=== PATIENT | male | born 1985 | race Caucasian/White ===

== ENCOUNTER 2018-12-05 15:28 | Emergency (ER) | payer SELFPAY ==
[2018-12-05 15:28] VITALS: BP 127/63
[2018-12-05] MEDS: ONDANSETRON PF 4 MG/2 ML VIAL. IV ONE (15:48)
[2018-12-05] MEDS ORDERED: MVI, ADULT NO.4 WITH VIT K 10 ML, FOLIC ACID SYRINGE for ER 1 MG, THIAMINE INJ 100 MG i... IV ONE ×4 (16:00)
--- NOTE | 2018-12-05 16:07 | PHYS DOC ---
Adult General Chief Complaint Chief Complaint: ALCOHOL INTOXICATION HPI HPI 32-year-old male was brought in by the local police department with concern for low blood sugar. The patient is under arrest. He appears intoxicated. He denies any pain. He does not want to be evaluated. He insists there is no reason to do any medical workup. He denies fever or chills. He denies any injuries. Review of Systems Review of Systems Constitutional: Denies fever or chills [] Eyes: Denies change in visual acuity, redness, or eye pain [] HENT: Denies nasal congestion or sore throat [] Respiratory: Denies cough or shortness of breath [] Cardiovascular: No additional information not addressed in HPI [] GI: Denies abdominal pain, nausea, vomiting, bloody stools or diarrhea [] : Denies dysuria or hematuria [] Musculoskeletal: Denies back pain or joint pain [] Integument: Denies rash or skin lesions [] Neurologic: Denies headache, focal weakness or sensory changes [] Endocrine: Denies polyuria or polydipsia [] All other systems were reviewed and found to be within normal limits, except as documented in this note. Current Medications Current Medications Current Medications Medications (Trade) Dose Ordered Sig/Helena Start Time Stop Time Status Last Admin Dose Admin Multivitamins/ Minerals 10 ml/ Folic Acid 1 mg/ Thiamine HCl 100 mg/Sodium Chloride 1,011.1 ml @ 1,000 mls/ hr 1X ONCE 12/05/18 16:00 12/05/18 17:00 Ondansetron HCl (Zofran) 4 mg 1X ONCE 12/05/18 16:00 12/05/18 16:03 DC Allergies Allergies Allergies Coded Allergies Type Severity Reaction Last Updated Verified No Known Drug Allergies 12/05/18 No Physical Exam Physical Exam Constitutional: Well developed, well nourished, no acute distress, intoxicated. [] HENT: Normocephalic, atraumatic, bilateral external ears normal, oropharynx moist, no oral exudates, nose normal. [] Eyes: PERRLA, EOMI, conjunctiva normal, no discharge. [] Neck: Normal range of motion, no tenderness, supple, no stridor. [] Cardiovascular:Heart rate regular rhythm, no murmur [] Lungs & Thorax: Bilateral breath sounds clear to auscultation [] Abdomen: Bowel sounds normal, soft, no tenderness, no masses, no pulsatile masses. [] Skin: Warm, dry, no erythema, no rash. [] Back: No tenderness, no CVA tenderness. [] Extremities: No tenderness, no cyanosis, no clubbing, ROM intact, no edema. [] Neurologic: Alert and oriented X 3, normal motor function, normal sensory function, no focal deficits noted. [] Psychologic: Affect agitated, mood anxious. [] Current Patient Data Lab Results Laboratory Tests Test 12/05/18 15:55 Glucose (Fingerstick) 108 mg/dL (70-99) H EKG EKG [] Radiology/Procedures Radiology/Procedures [] Course & Med Decision Making Course & Med Decision Making Pertinent Labs and Imaging studies reviewed. (See chart for details) He is aware of person, place, and time. His blood sugar was over 100. I asked the patient 3 different times if he wanted any further medical workup. The patient declined each time. He understands that this means he will not have any further testing and will leave the hospital. He states this is okay with him. I will discharge him. [] Dragon Disclaimer Dragon Disclaimer This electronic medical record was generated, in whole or in part, using a voice recognition dictation system. Departure Departure: Impression: Primary Impression: Intoxication Disposition: 05 TRANSFER OTHER Condition: STABLE Referrals: NESS RODRIGUEZ (PCP) Patient Instructions: Alcohol Intoxication, [id number] REX MARTINEZ DO Dec 05, 2018 16:07
== END 2018-12-05 16:07 ==
LOC: ER 15:28
DX: F10.129 Alcohol abuse with intoxication, unspecified (principal); E16.2 Hypoglycemia, unspecified; Y90.9 Presence of alcohol in blood, level not specified
CPT/HCPCS: 82947; 99283

== ENCOUNTER 2018-12-13 11:41 | Emergency (ER) | payer SELFPAY ==
[~2018-12-13] VITALS: Ht 172.7 cm; Wt 79.4 kg
[2018-12-13] MEDS ORDERED: IV NORMAL SALINE 1,000ML 1,000 ML IV ONE (12:00)
[2018-12-13 12:29] LABS: BASO % 1 % (0-3); EOS % 1 % (0-3); HEMATOCRIT 45.1 % (39.0-53.0); HEMOGLOBIN 15.4 g/dL (13.0-17.5); LYMPH # 1.7 x10^3/uL (1.0-4.8); LYMPH % 26 % (24-48); MEAN CORPUSCULAR HEMOGLOBIN 28 pg (25-35); MEAN CORPUSCULAR HGB CONC 34 g/dL (31-37); MEAN CORPUSCULAR VOLUME 83 fL (79-100); MONO # 0.5 x10^3/uL (0.0-1.1); MONO % 7 % (0-9); NEUT # 4.4 x10^3uL (1.8-7.7); NEUT % 66 % (31-73); PLATELET COUNT 201 x10^3/uL (140-400); RED BLOOD COUNT 5.44 x10^6/uL (4.30-5.70); RED CELL DISTRIBUTION WIDTH 15.3 % (11.5-14.5); WHITE BLOOD COUNT 6.7 x10^3/uL (4.0-11.0)
[2018-12-13 12:37] LABS: AMPHETAMINE/METHAMPHETAMINE POS (NEG); BARBITURATES NEG (NEG); BENZODIAZEPINES NEG (NEG); CANNABINOIDS POS (NEG); COCAINE NEG (NEG); METHADONE NEG (NEG); OPIATES NEG (NEG); PHENCYCLIDINE NEG (NEG)
[2018-12-13 12:50] LABS: ALBUMIN 4.1 g/dL (3.4-5.0); ALBUMIN/GLOBULIN RATIO 1.1 (1.0-1.7); CALCIUM 9.2 mg/dL (8.5-10.1); CREATININE 0.8 mg/dL (0.7-1.3); GFR 110.7; TOTAL BILIRUBIN 1.1 mg/dL (0.2-1.0); TOTAL PROTEIN 7.9 g/dL (6.4-8.2)
[2018-12-13 12:59] VITALS: BP 160/90
--- NOTE | 2018-12-13 13:17 | PHYS DOC ---
Past History Past Medical History: Alcoholism Past Surgical History: Other Additional Smoking Information: 1 PPD Alcohol Use: Heavy Drug Use: Opiates Adult General Chief Complaint Chief Complaint: DRUG ABUSE HPI HPI 33-year-old male with a history of drug and alcohol abuse but he has been off of the drugs for some time. He has been using alcohol more recently. He was found intoxicated by his and she kicked him out of the house several days ago so went and has been staying in a local hotel. While in the hotel someone offered him methamphetamines which he used. He is currently stating he is very anxious and wants to get help for his substance abuse. Denies any suicidal or homicidal ideation[] Review of Systems Review of Systems Constitutional: Denies fever or chills [] Eyes: Denies change in visual acuity, redness, or eye pain [] HENT: Denies nasal congestion or sore throat [] Respiratory: Denies cough or shortness of breath [] Cardiovascular: No additional information not addressed in HPI [] GI: Denies abdominal pain, nausea, vomiting, bloody stools or diarrhea [] : Denies dysuria or hematuria [] Musculoskeletal: Denies back pain or joint pain [] Integument: Denies rash or skin lesions [] Neurologic: Denies headache, focal weakness or sensory changes [] Endocrine: Denies polyuria or polydipsia [] Psychiatric: Reports anxiety All other systems were reviewed and found to be within normal limits, except as documented in this note. Current Medications Current Medications Current Medications Medications (Trade) Dose Ordered Sig/Helena Start Time Stop Time Status Last Admin Dose Admin Lorazepam (Ativan) 1 mg 1X ONCE 12/13/18 12:20 12/13/18 12:21 DC 12/13/18 12:17 1 MG Sodium Chloride 1,000 ml @ 1,000 mls/hr 1X ONCE 12/13/18 12:00 12/13/18 12:59 DC 12/13/18 12:17 1,000 MLS/HR Allergies Allergies Allergies Coded Allergies Type Severity Reaction Last Updated Verified No Known Drug Allergies 12/05/18 No Physical Exam Physical Exam Constitutional: Well developed, well nourished, no acute distress, non-toxic appearance. [] HENT: Normocephalic, atraumatic, bilateral external ears normal, oropharynx moist, no oral exudates, nose normal. [] Eyes: PERRLA, EOMI, conjunctiva normal, no discharge. [] Neck: Normal range of motion, no tenderness, supple, no stridor. [] Cardiovascular:Heart rate regular rhythm, no murmur [] Lungs & Thorax: Bilateral breath sounds clear to auscultation [] Abdomen: Bowel sounds normal, soft, no tenderness, no masses, no pulsatile masses. [] Skin: Warm, dry, no erythema, no rash. [] Back: No tenderness, no CVA tenderness. [] Extremities: No tenderness, no cyanosis, no clubbing, ROM intact, no edema. [] Neurologic: Tremulous[] Psychologic: Extremely anxious. [] Current Patient Data Vital Signs Vital Signs Date Time Temp Pulse Resp B/P (MAP) Pulse Ox O2 Delivery O2 Flow Rate FiO2 12/13/18 11:47 98.3 108 23 98 Room Air Lab Results Laboratory Tests Test 12/13/18 12:10 12/13/18 12:14 Urine Opiates Screen Neg (NEG) Urine Methadone Screen Neg (NEG) Urine Barbiturates Neg (NEG) Urine Phencyclidine Screen Neg (NEG) Urine Amphetamine/Methamphetamine Pos (NEG) Urine Benzodiazepines Screen Neg (NEG) Urine Cocaine Screen Neg (NEG) Urine Cannabinoids Screen Pos (NEG) Urine Ethyl Alcohol Pos (NEG) White Blood Count 6.7 x10^3/uL (4.0-11.0) Red Blood Count 5.44 x10^6/uL (4.30-5.70) Hemoglobin 15.4 g/dL (13.0-17.5) Hematocrit 45.1 % (39.0-53.0) Mean Corpuscular Volume 83 fL (79-100) Mean Corpuscular Hemoglobin 28 pg (25-35) Mean Corpuscular Hemoglobin Concent 34 g/dL (31-37) Red Cell Distribution Width 15.3 % (11.5-14.5) H Platelet Count 201 x10^3/uL (140-400) Neutrophils (%) (Auto) 66 % (31-73) Lymphocytes (%) (Auto) 26 % (24-48) Monocytes (%) (Auto) 7 % (0-9) Eosinophils (%) (Auto) 1 % (0-3) Basophils (%) (Auto) 1 % (0-3) Neutrophils # (Auto) 4.4 x10^3uL (1.8-7.7) Lymphocytes # (Auto) 1.7 x10^3/uL (1.0-4.8) Monocytes # (Auto) 0.5 x10^3/uL (0.0-1.1) Eosinophils # (Auto) 0.0 x10^3/uL (0.0-0.7) Basophils # (Auto) 0.0 x10^3/uL (0.0-0.2) Sodium Level 137 mmol/L (136-145) Potassium Level 3.0 mmol/L (3.5-5.1) L Chloride Level 97 mmol/L (98-107) L Carbon Dioxide Level 22 mmol/L (21-32) Anion Gap 18 (6-14) H Blood Urea Nitrogen 14 mg/dL (8-26) Creatinine 0.8 mg/dL (0.7-1.3) Estimated GFR (Cockcroft-Gault) 110.7 BUN/Creatinine Ratio 18 (6-20) Glucose Level 88 mg/dL (70-99) Calcium Level 9.2 mg/dL (8.5-10.1) Total Bilirubin 1.1 mg/dL (0.2-1.0) H Aspartate Amino Transferase (AST) 248 U/L (15-37) H Alanine Aminotransferase (ALT) 141 U/L (16-63) H Alkaline Phosphatase 74 U/L (46-116) Total Protein 7.9 g/dL (6.4-8.2) Albumin 4.1 g/dL (3.4-5.0) Albumin/Globulin Ratio 1.1 (1.0-1.7) Ethyl Alcohol Level 23 mg/dL (0-10) H EKG EKG [] Radiology/Procedures Radiology/Procedures [] Course & Med Decision Making Course & Med Decision Making Pertinent Labs and Imaging studies reviewed. (See chart for details) [ED course: Evaluation reveals a 33-year-old male who is suffering the ill effects of methamphetamine abuse. He was given some IV fluids and Ativan during his stay in the department which did help calm him down. We will refer him to the guidance Center for assistance with his substance abuse. Patient is safe for discharge home at this time] Dragon Disclaimer Dragon Disclaimer This electronic medical record was generated, in whole or in part, using a voice recognition dictation system. Departure Departure: Impression: Primary Impression: Methamphetamine abuse Additional Impression: Alcoholism /alcohol abuse Disposition: 01 HOME, SELF-CARE Condition: STABLE Referrals: NESS RODRIGUEZ (PCP) Patient Instructions: Chronic Alcoholism, Methamphetamine Abuse, Complications Additional Instructions: Follow with the guidance Center they will help you with your substance abuse issues. Return to the emergency department with any new or concerning symptoms Problem Qualifiers VAL BERRIOS DO Dec 13, 2018 13:17
== END 2018-12-13 13:25 | disposition home or self-care (01) ==
LOC: ER 11:41
DX: F15.10 Other stimulant abuse, uncomplicated (principal); F10.20 Alcohol dependence, uncomplicated; F17.200 Nicotine dependence, unspecified, uncomplicated; F41.9 Anxiety disorder, unspecified; Y90.1 Blood alcohol level of 20-39 mg/100 ml
CPT/HCPCS: 36415; 80053; 80307; 85025; 96374; 99284; G0480; J2060; J7030

== ENCOUNTER 2019-03-04 08:01 | Inpatient (IN) | payer SELFPAY ==
[~2019-03-04] VITALS: Ht 170.2 cm; Wt 81.6 kg
[2019-03-04] VITALS (10 sets, daily range): BP systolic 107–159; BP diastolic 63–94
[2019-03-04] MEDS ORDERED: MVI, ADULT NO.4 WITH VIT K 10 ML, FOLIC ACID SYRINGE for ER 1 MG, THIAMINE INJ 100 MG i... IV SCH ×4 (08:30)
[2019-03-04 08:43] LABS: BASO % 0 % (0-3); EOS % 0 % (0-3); HEMATOCRIT 49.6 % (39.0-53.0); HEMOGLOBIN 17.2 g/dL (13.0-17.5); LYMPH % 20 % (24-48); MEAN CORPUSCULAR HEMOGLOBIN 29 pg (25-35); MEAN CORPUSCULAR HGB CONC 35 g/dL (31-37); MEAN CORPUSCULAR VOLUME 82 fL (79-100); MONO # 1.5 x10^3/uL (0.0-1.1); MONO % 10 % (0-9); NEUT # 10.6 x10^3uL (1.8-7.7); NEUT % 70 % (31-73); PLATELET COUNT 331 x10^3/uL (140-400); RED BLOOD COUNT 6.04 x10^6/uL (4.30-5.70); RED CELL DISTRIBUTION WIDTH 14.6 % (11.5-14.5); WHITE BLOOD COUNT 15.2 x10^3/uL (4.0-11.0)
[2019-03-04] MEDS ORDERED: IV NORMAL SALINE 1,000ML 1,000 ML IV ONE (08:45)
[2019-03-04] MEDS ORDERED: ONDANSETRON PF 4 MG/2 ML VIAL. IV ONE (08:45)
[2019-03-04 08:46] LABS: SALIC < 0.2 mg/dL (2.8-20.0)
[2019-03-04 08:47] LABS: ACETAMIN < 2.0 mcg/mL (10-30); BARBITURATES NEG (NEG); BENZODIAZEPINES NEG (NEG); CANNABINOIDS POS (NEG); COCAINE NEG (NEG); ETHANOL < 10 mg/dL (0-10); METHADONE NEG (NEG); OPIATES NEG (NEG); PHENCYCLIDINE NEG (NEG)
[2019-03-04 08:48] LABS: AMPHETAMINE/METHAMPHETAMINE NEG (NEG)
[2019-03-04 08:49] LABS: ALBUMIN 5.2 g/dL (3.4-5.0); CREATININE 2.5 mg/dL (0.7-1.3); DIRECT BILIRUBIN 0.3 mg/dL (0.0-0.2); GFR 29.7; MAGNESIUM 2.1 mg/dL (1.8-2.4); TOTAL BILIRUBIN 1.2 mg/dL (0.2-1.0); TOTAL PROTEIN 9.4 g/dL (6.4-8.2)
[2019-03-04 08:50] LABS: POTASSIUM 2.3 mmol/L (3.5-5.1)
[2019-03-04 08:57] LABS: BACTERIA,URINE FEW /HPF (0-FEW); BILIRUBIN,URINE NEG (NEG); CLARITY,URINE HAZY; COLOR,URINE AMBER; GLUCOSE,URINE NEG (NEG); HYALINE CASTS, URINE OCC /HPF; NITRITE,URINE NEG (NEG); RBC,URINE RARE /HPF (0-2); SQUAMOUS EPITHELIAL CELL,UR OCC /LPF; UROBILINOGEN,URINE 1 mg/dL (0.2 mg/dL); WBC,URINE 0 /HPF (0-4)
[2019-03-04] MEDS ORDERED: POTASSIUM CHLORIDE 20 MEQ/15 ML ORAL LIQUID. PO ONE (09:00)
[2019-03-04] MEDS ORDERED: POTASSIUM CHLORIDE 20MEQ 100 ML IV ONE (09:00)
--- NOTE | 2019-03-04 09:03 | PHYS DOC ---
Past History Past Medical History: Asthma Past Surgical History: No Surgical History Smoking: Cigarettes Alcohol Use: Heavy Drug Use: Marijuana Adult General Chief Complaint Chief Complaint: ACCIDENTAL INGESTION HPI HPI Patient is a 33-year-old male presents with nausea and vomiting. This started yesterday. He is been on a drinking binge for the past 6 days. He does have a history of alcoholism. He ingested rubbing alcohol due to lack of ethanol yesterday. Denies any blood in the emesis. Nothing seems to make the symptoms better. Patient smoked marijuana this morning without any improvement. He was able to get some sleep after smoking the marijuana. Denies any other ingestants. Denies any suicidal ideation.[] Review of Systems Review of Systems Constitutional: Denies fever or chills [] Eyes: Denies change in visual acuity, redness, or eye pain [] HENT: Denies nasal congestion or sore throat [] Respiratory: Denies cough or shortness of breath [] Cardiovascular: He notes some left chest pain after throwing up. No worsening with exertion, no respirophasic component, no radiation[] GI: See history of present illness[] : Denies dysuria or hematuria [] Musculoskeletal: Denies back pain or joint pain [] Integument: Denies rash or skin lesions [] Neurologic: Denies headache, focal weakness or sensory changes [] Endocrine: Denies polyuria or polydipsia [] All other systems were reviewed and found to be within normal limits, except as documented in this note. Allergies Allergies Allergies Coded Allergies Type Severity Reaction Last Updated Verified No Known Drug Allergies 12/05/18 No Physical Exam Physical Exam Constitutional: Well developed, well nourished, moderate discomfort, non-toxic appearance. [] HENT: Normocephalic, atraumatic, bilateral external ears normal, oropharynx moist, no oral exudates, nose normal. [] Eyes: PERRLA, EOMI, conjunctiva normal, no discharge. [] Neck: Normal range of motion, no tenderness, supple, no stridor. [] Cardiovascular:Heart rate is tachycardic with a regular rhythm, no murmur [] Lungs & Thorax: Bilateral breath sounds clear to auscultation [] Abdomen: Bowel sounds normal, soft, diffuse tenderness, no masses, no pulsatile masses. [] Skin: Warm, dry, no erythema, no rash. [] Back: No tenderness, no CVA tenderness. [] Extremities: No tenderness, no cyanosis, no clubbing, ROM intact, no edema. [] Neurologic: Alert and oriented X 3, normal motor function, normal sensory function, no focal deficits noted. [] Psychologic: Affect normal, mood normal. [] Current Patient Data Vital Signs Vital Signs Date Time Temp Pulse Resp B/P (MAP) Pulse Ox O2 Delivery O2 Flow Rate FiO2 03/04/19 08:15 98.4 135 20 99 Room Air Lab Results Laboratory Tests Test 03/04/19 08:13 White Blood Count 15.2 x10^3/uL (4.0-11.0) H Red Blood Count 6.04 x10^6/uL (4.30-5.70) H Hemoglobin 17.2 g/dL (13.0-17.5) Hematocrit 49.6 % (39.0-53.0) Mean Corpuscular Volume 82 fL (79-100) Mean Corpuscular Hemoglobin 29 pg (25-35) Mean Corpuscular Hemoglobin Concent 35 g/dL (31-37) Red Cell Distribution Width 14.6 % (11.5-14.5) H Platelet Count 331 x10^3/uL (140-400) Neutrophils (%) (Auto) 70 % (31-73) Lymphocytes (%) (Auto) 20 % (24-48) L Monocytes (%) (Auto) 10 % (0-9) H Eosinophils (%) (Auto) 0 % (0-3) Basophils (%) (Auto) 0 % (0-3) Neutrophils # (Auto) 10.6 x10^3uL (1.8-7.7) H Lymphocytes # (Auto) 3.0 x10^3/uL (1.0-4.8) Monocytes # (Auto) 1.5 x10^3/uL (0.0-1.1) H Eosinophils # (Auto) 0.0 x10^3/uL (0.0-0.7) Basophils # (Auto) 0.0 x10^3/uL (0.0-0.2) EKG EKG EKG shows a sinus tachycardia at 118 bpm, rightward axis at 98, normal QTC, no ST elevation. No old EKG available for comparison. Interpreted by me at 0820.[] Radiology/Procedures Radiology/Procedures Chest x-ray shows no infiltrate, no effusion, no widened mediastinum, no mediastinal free air.[] Course & Med Decision Making Course & Med Decision Making Pertinent Labs and Imaging studies reviewed. (See chart for details) ED course: Patient arrived, was placed in bed, and tolerated exam well. He was given IV fluids along with anti-emetics and benzodiazepines due to concern for alcohol withdrawal. His a laboratory tests returned noted that he's in acute renal failure along with hypokalemia giving initial doses of potassium. Patient's troponin is noted to be in the detectable range but not positive., With these constellation of factors consultation was made with the hospitalist who graciously accepted. He was admitted to the ICU in improved condition. Medical decision making: Believed the patient has depleted his body stores of potassium despite the renal failure, due to the alcohol use. There is no evidence of other significant toxidrome at this time. Will hydrate him and hop efully his renal function will improve to his baseline and that was noted earlier this year. There is no evidence of an esophageal rupture on his chest x- ray. No evidence of a STEMI nor acute coronary syndrome based on EKG and history and physical exam. No evidence of pneumonia or pneumothorax based on imaging. Patient has no PE risk factors.[] Dragon Disclaimer Dragon Disclaimer This electronic medical record was generated, in whole or in part, using a voice recognition dictation system. Departure Departure: Impression: Primary Impression: Alcohol withdrawal Additional Impressions: Hypokalemia Acute renal failure Dehydration Chest pain Nausea and vomiting Disposition: ADMITTED INPATIENT Admitting Physician: Nona Girard Condition: IMPROVED Referrals: PCP,NO (PCP) Problem Qualifiers Primary Impression: Alcohol withdrawal Complication of substance-induced condition: with unspecified complication Qualified Codes: F10.239 - Alcohol dependence with withdrawal, unspecified Additional Impressions: Acute renal failure Acute renal failure type: unspecified Qualified Codes: N17.9 - Acute kidney failure, unspecified Chest pain Chest pain type: unspecified Qualified Codes: R07.9 - Chest pain, unspecified Nausea and vomiting Vomiting type: unspecified Vomiting Intractability: unspecified Qualified Codes: R11.2 - Nausea with vomiting, unspecified ADAM MAHMOOD DO Mar 04, 2019 09:03
[2019-03-04] MEDS: IV NORMAL SALINE 1,000ML 1,000 ML IV SCH ×2 (09:16→17:16)
--- NOTE | 2019-03-04 09:25 | EKG ---
[address] [address] Test Date: 2019-03-04 Test Time: 08:20:03 Pat Name: KATIE GAMBOA Department: Room: Gender: M Wireless Technician: : 1985 Requested By: ADAM MAHMOOD Order Number: [id number] Reading MD: Measurements Intervals [place] Rate: 118 P: 151 CA: 128 QRS: 98 QRSD: 80 T: 33 QT: 350 QTc: 493 Interpretive Statements SINUS TACHYCARDIA LEFT ATRIAL ABNORMALITY RIGHTWARD AXIS ABNORMAL ECG RI6.01 No previous ECG available for comparison
[2019-03-04] MEDS ORDERED: ACETAMINOPHEN 325 MG TABLET PO PRN (09:30)
[2019-03-04] MEDS ORDERED: chlordiazePOXIDE HCL 25 MG CAPSULE PO PRN ×3 (09:30→11:15)
--- NOTE | 2019-03-04 09:46 | RAD ---
EXAM: CHEST 1 VIEW History: Chest pain COMPARISON: None available. TECHNIQUE: Single portable radiograph of the chest FINDINGS: The cardiac silhouette is unremarkable. The lungs are clear bilaterally. The costophrenic sulci are clear and well demarcated. IMPRESSION: No radiographic evidence of an acute cardiopulmonary process.
[2019-03-04] MEDS ORDERED: cloNIDine HCL 0.1 MG TABLET PO PRN (11:15)
[2019-03-04] MEDS ORDERED: diphenhydrAMINE 50 MG/ML VIAL IVP PRN (11:15)
[2019-03-04] MEDS ORDERED: HALOPERIDOL LACT 5 MG/ML VIAL. IM PRN (11:15)
--- NOTE | 2019-03-04 11:19 | NUR ---
The patient, KATIE GAMBOA, 33 y/o, M admitted by CHAUNCEY SORIA MD, was given written information regarding hospital policies, unit procedures and contact persons. Valuables were checked and admission assessment performed. pt admits to drinking rubbing alcohol last night due to not having any other alcohol available. pt states that he usually drinks a pint of vodka everyday and is "wrapped up in this disease." pt is alert but agitated and restless. pt vss. lungs are cta. pt has two iv in both ac's but the iv in the left ac is positional, iv fluids infusing with potassium infusing as well. pt is insistent on eating and drinking, however is also nauseated at the same time. pt offered ice chips, pt eating ice chips at this moment. call light within reach, bed rails padded for seizure precautions, will ctm.
--- NOTE | 2019-03-04 12:09 | HP ---
ADMIT DATE: 03/04/2019 HISTORY OF PRESENT ILLNESS: The patient is a 33-year-old male patient, an alcoholic, who presented to the Emergency Room with complaint of nausea, vomiting that started yesterday. He has been on drinking binge for the past 6 days. He does have history of alcoholism and he ingested rubbing alcohol, ethanol. He apparently denied any hematemesis, melena. He apparently has been complaining of this nausea and vomiting and nothing has made the symptoms better. He smokes marijuana this morning without any improvement. He was able to get some speed after smoking marijuana, but denied any other ingestant, denied any suicidal ideation. He was evaluated in the Emergency Room and was found to be extremely hypokalemic. He has also leukocytosis, erythrocytosis and has acute kidney injury. Potassium is only 2.3 and creatinine up to 2.5. His toxicology screen was essentially negative and was admitted for treatment of his acute kidney injury, severe hypokalemia and alcohol withdrawal symptoms. PAST MEDICAL HISTORY: Significant for bronchial asthma. PAST SURGICAL HISTORY: Significant for surgery on his arm as well as bilateral myringotomy tubes for his both ears. ALLERGIES: He has no known drug allergies. MEDICATIONS: Apparently, he is on Prozac that he has not taken for 2 weeks. FAMILY HISTORY: Unremarkable. SOCIAL HISTORY: He is , has 4 children and his stated that he apparently also is drug abuser and extreme alcoholic. He apparently just laid off from his job recently. REVIEW OF SYSTEMS: As per history of present illness: The patient is extremely agitated, restless, clearly tremulous, wanting something to help him sleep. PHYSICAL EXAMINATION: GENERAL: On examining him, he looked well and was clearly in no apparent respiratory distress. No pallor, jaundice, cyanosis, or thyromegaly. No jugular venous distension. No limb edema. VITAL SIGNS: His heart rate on arrival to the Emergency Room was 135, blood pressure 148/88, temperature was 98.4, respiratory rate was 20, and oxygen saturation was 99% on room air. HEAD, EYES, EARS, NOSE, AND THROAT: Showed normocephalic, atraumatic. NECK: Supple. HEART: Showed normal first and second heart sounds. No gallop, rub or murmur. CHEST: Clear to auscultation. No crepitation or rhonchi. ABDOMEN: Distended, soft, nontender. No guarding or rigidity. No organomegaly. All hernial orifice intact. Bowel sounds normal. NEUROLOGIC: He is awake, alert, responding appropriately. All cranial nerves intact. EXTREMITIES: He moves all extremities without difficulty. LABORATORY DATA: Showed that his white cell count was high at 15,200, hemoglobin 17.2, hematocrit 49.6, MCV 82 and a platelet count of 331,000 with a manual differential shows 70% polymorphs, 20% lymphocytes and 10% monocytes. His prothrombin time was 9.9, INR of 1. Serum sodium was 134, potassium 2.3, chloride 84, bicarbonate 31, anion gap of 19, BUN 19, creatinine 2.5, estimated GFR was 29 mL per minute, his glucose 163, calcium was 11, magnesium was 2.2. Total bilirubin, AST, ALT elevated. Alkaline phosphatase was normal. His troponin was less than 0.023. Total protein was 9.4, albumin was 5.2. Urinalysis showed the urine was hazy with a pH of more than 8.5, specific gravity of 1.015. There was large amount of protein, negative for glucose, large amount of ketones. The urine was negative for blood, nitrite, bilirubin, leukocyte esterase, rare rbc's, no wbc's, and no bacteria. Her toxic screen was negative for salicylate, acetaminophen, opiates, methadone. It was positive for cannabinoids. His blood alcohol level was less than 10. His chest x-ray showed the cardiac silhouette is unremarkable. The lungs are clear bilaterally. The costophrenic sulci are clear and well demarcated. IMPRESSION AND PLAN: In summary, this is a 33-year-old male patient is apparently known alcoholic as well as IV drug abuser, who was admitted with recurrent bouts of nausea and vomiting. He was in alcohol withdrawal. His lab work showed that he has severe hypokalemia and acute kidney injury. We will continue with replenish potassium using electrolyte replacement protocol. Continue with aggressive fluid replacement. We will continue obviously with alcohol withdrawal protocol and banana bag. CHAUNCEY SORIA MD DR: HUMPHREY/marc JOB#: [id number] / [id number]
[2019-03-04] MEDS: chlordiazePOXIDE HCL 25 MG CAPSULE PO PRN ×4 (14:24→21:41)
[2019-03-04] MEDS: NICOTINE 21MG PATCH. TD SCH (14:30)
[2019-03-04 16:17] LABS: BASO % 1 % (0-3); EOS % 0 % (0-3); HEMATOCRIT 45.2 % (39.0-53.0); HEMOGLOBIN 15.6 g/dL (13.0-17.5); LYMPH # 1.7 x10^3/uL (1.0-4.8); LYMPH % 20 % (24-48); MEAN CORPUSCULAR HEMOGLOBIN 29 pg (25-35); MEAN CORPUSCULAR HGB CONC 34 g/dL (31-37); MEAN CORPUSCULAR VOLUME 84 fL (79-100); MONO # 0.8 x10^3/uL (0.0-1.1); MONO % 9 % (0-9); NEUT # 6.1 x10^3uL (1.8-7.7); NEUT % 71 % (31-73); PLATELET COUNT 201 x10^3/uL (140-400); RED BLOOD COUNT 5.38 x10^6/uL (4.30-5.70); RED CELL DISTRIBUTION WIDTH 14.5 % (11.5-14.5); WHITE BLOOD COUNT 8.7 x10^3/uL (4.0-11.0)
[2019-03-04 16:25] LABS: CALCIUM 9.5 mg/dL (8.5-10.1); CREATININE 1.9 mg/dL (0.7-1.3); GFR 40.8
[2019-03-04 16:36] LABS: POTASSIUM 2.9 mmol/L (3.5-5.1)
[2019-03-04] MEDS: POTASSIUM CHLORIDE 20MEQ 100 ML IV SCH ×4 (16:57→23:01)
[2019-03-04] MEDS: ONDANSETRON PF 4 MG/2 ML VIAL. IV PRN ×2 (17:47→21:44)
--- NOTE | 2019-03-04 22:47 | NUR ---
Dr Girard called and notified of pts increasing agitation, restlessness and getting more and more difficult to redirect. Pt complains of pain and requesting something for it. V/u stated. orders received.
[2019-03-04] MEDS ORDERED: HYDROcodone/APAP 5/325MG 1 TAB TABLET ONE (22:54)
[2019-03-04] MEDS ORDERED: diphenhydrAMINE HCL 25 MG CAPSULE PO PRN ×3 (23:00)
[2019-03-04] MEDS: HYDROcodone/APAP 5/325MG 1 TAB TABLET PO PRN (23:01)
[2019-03-04] MEDS: HALOPERIDOL LACT 5 MG/ML VIAL. IM PRN (23:46)
--- NOTE | 2019-03-04 23:47 | NUR ---
Pts behaviors continue to escalate. Pt continues to be geting more and more agitated, restless amd will not stay in bed. Haldol IM given at this time, see MAR.
[2019-03-05] VITALS (16 sets, daily range): BP systolic 120–166; BP diastolic 64–100
[2019-03-05] MEDS: IV NORMAL SALINE 1,000ML 1,000 ML IV SCH (02:00)
--- NOTE | 2019-03-05 02:00 | NUR ---
Pts behaviors improved. Pt still moving around in bed from time to time, but less agitation and is resting at this time.
[2019-03-05 06:09] LABS: BASO % 0 % (0-3); EOS % 0 % (0-3); HEMATOCRIT 41.2 % (39.0-53.0); LYMPH # 1.9 x10^3/uL (1.0-4.8); LYMPH % 35 % (24-48); MEAN CORPUSCULAR HEMOGLOBIN 29 pg (25-35); MEAN CORPUSCULAR HGB CONC 34 g/dL (31-37); MEAN CORPUSCULAR VOLUME 85 fL (79-100); MONO # 0.4 x10^3/uL (0.0-1.1); MONO % 7 % (0-9); NEUT # 3.1 x10^3uL (1.8-7.7); NEUT % 57 % (31-73); PLATELET COUNT 162 x10^3/uL (140-400); RED BLOOD COUNT 4.87 x10^6/uL (4.30-5.70); RED CELL DISTRIBUTION WIDTH 14.2 % (11.5-14.5); WHITE BLOOD COUNT 5.5 x10^3/uL (4.0-11.0)
[2019-03-05 06:15] LABS: ALBUMIN 3.8 g/dL (3.4-5.0); ALBUMIN/GLOBULIN RATIO 1.2 (1.0-1.7); CALCIUM 8.8 mg/dL (8.5-10.1); CREATININE 1.5 mg/dL (0.7-1.3); GFR 53.6; POTASSIUM 3.1 mmol/L (3.5-5.1); TOTAL BILIRUBIN 0.8 mg/dL (0.2-1.0)
[2019-03-05] MEDS: HALOPERIDOL LACT 5 MG/ML VIAL. IM PRN ×2 (07:45→14:03)
[2019-03-05] MEDS ORDERED: POTASSIUM CHLORIDE 20 MEQ TABLET.ER. PO ONE (07:45)
[2019-03-05] MEDS: chlordiazePOXIDE HCL 25 MG CAPSULE PO PRN ×3 (07:46→17:54)
[2019-03-05] MEDS: HYDROcodone/APAP 5/325MG 1 TAB TABLET PO PRN ×2 (07:47→17:54)
[2019-03-05] MEDS: NICOTINE 21MG PATCH. TD SCH (07:47)
[2019-03-05] MEDS ORDERED: ONDANSETRON ODT 4 MG TAB.RAPDIS ONE (09:07)
[2019-03-05] MEDS: ONDANSETRON PF 4 MG/2 ML VIAL. IV PRN ×3 (09:22→17:17)
[2019-03-05] MEDS: MVI, ADULT NO.4 WITH VIT K 10 ML, FOLIC ACID INJ 1 MG, THIAMINE INJ 100 MG in IV NORMAL... IV SCH ×4 (09:22)
[2019-03-05] MEDS: diphenhydrAMINE 50 MG/ML VIAL IVP PRN (09:23)
--- NOTE | 2019-03-05 09:43 | NUR ---
Pt was asleep on arrival to unit this am. patient started to get restless and wanted to try breakfast. Pt had no IV pulled out accucath that was placed yesterday. Patient became agitated, was able to tolerate some breakfast than had nausea. When pt had no line gave IM haldol and librium. Pt now has accucath in RUE with banana bag running. Patient is sleeping 2 L nc for O2 90%. called and said she serving him divorce papers when he gets out of the hospital so he needs to go to rehab or with his brother pat in [place]. John ARSHAD
[2019-03-05] MEDS ORDERED: ELECTROLYTE (ICU) PROTOCOL. MC PRN (12:45)
[2019-03-05] MEDS ORDERED: POTASSIUM CL 40MEQ IN 0.9%NACL 1,000 ML IV ONE (13:33)
[2019-03-05] MEDS ORDERED: POTASSIUM CHLORIDE 40 MEQ in IV NORMAL SALINE 1,000ML 1,000 ML IV SCH (13:45)
[2019-03-05] MEDS: POTASSIUM CL 40MEQ IN 0.9%NACL 1,000 ML IV SCH ×2 (14:04→21:51)
[2019-03-05 17:37] LABS: CALCIUM 8.4 mg/dL (8.5-10.1); CREATININE 1.2 mg/dL (0.7-1.3); GFR 69.3; POTASSIUM 3.8 mmol/L (3.5-5.1)
[2019-03-06] VITALS (16 sets, daily range): BP systolic 113–148; BP diastolic 58–102
[2019-03-06] MEDS: ONDANSETRON PF 4 MG/2 ML VIAL. IV PRN ×2 (00:26→18:32)
[2019-03-06 06:20] LABS: CALCIUM 8.6 mg/dL (8.5-10.1); CREATININE 1.1 mg/dL (0.7-1.3); GFR 76.6; MAGNESIUM 2.1 mg/dL (1.8-2.4)
[2019-03-06 06:21] LABS: HEMATOCRIT 37.9 % (39.0-53.0); HEMOGLOBIN 12.8 g/dL (13.0-17.5); RED BLOOD COUNT 4.43 x10^6/uL (4.30-5.70); RED CELL DISTRIBUTION WIDTH 14.4 % (11.5-14.5); WHITE BLOOD COUNT 4.4 x10^3/uL (4.0-11.0)
[2019-03-06] MEDS: NICOTINE 21MG PATCH. TD SCH (07:49)
[2019-03-06] MEDS: PANTOPRAZOLE 40 MG TABLET. PO SCH (07:49)
--- NOTE | 2019-03-06 09:30 | PN ---
DATE: 03/05/2019 SUBJECTIVE: The patient is resting, slightly propped up in bed, in no apparent distress. He apparently was given intramuscular Haldol together with his Librium and Lortab and he seems to have responded very well. His blood pressure and heart rate are well controlled. He managed to take something by mouth, although continued to have some nausea, and his kidney function is steadily improving from 2.5 to 1.5 this morning. The potassium slightly better, but not back to normal. PHYSICAL EXAMINATION: GENERAL: When I examined him, he looked well and was clearly in no apparent respiratory distress. No pallor, jaundice, cyanosis or thyromegaly. No jugular venous distension. No limb edema. VITAL SIGNS: His heart rate was 90, blood pressure was 128/73, temperature was 98.3, respiratory rate was 28, and oxygen saturation was 90% on 2 liters of oxygen. HEAD, EYES, EARS, NOSE AND THROAT: Showed normocephalic, atraumatic. NECK: Supple. HEART: Showed normal first and second heart sounds with no gallop, rub or murmur. CHEST: Clear to auscultation. No crepitation or rhonchi. ABDOMEN: Distended, soft, nontender. NEUROLOGIC: He is lethargic, but arousable. All his cranial nerves are intact. He moves extremities without difficulty. His intake and output are incompletely recorded. LABORATORY DATA: Her lab work this morning showed a serum sodium 141, potassium 3.1, chloride 101, bicarbonate 30, anion gap of 10, BUN 12, creatinine 1.5, estimated GFR was 54 mL per minute. His glucose was 96, calcium was 8.8. Total bilirubin and alkaline phosphatase were normal. AST, ALT are elevated. His white cell count was 5500, hemoglobin 14, hematocrit 41, MCV 85, and platelet count of 162,000. His prothrombin time was 9.9, INR of 1. Urinalysis was unremarkable as well as toxic screen. ASSESSMENT: This is a 33-year-old male patient admitted with recurrent bouts of nausea and vomiting. He apparently was laid out from a shop and has drunk rubbing alcohol and he came in alcohol withdrawal. He has hypokalemia, 4 acute kidney injury, both the hypokalemia is resolving slowly and kidney function steadily improving from 2.5 to 1.5. PLAN: Continue IV fluid, continue with alcohol withdrawal protocol. CHAUNCEY SORIA MD DR: HUMPHREY/marc JOB#: [id number] / [id number]
[2019-03-06] MEDS: POTASSIUM CL 40MEQ IN 0.9%NACL 1,000 ML IV SCH (11:33)
[2019-03-06] MEDS: MVI, ADULT NO.4 WITH VIT K 10 ML, FOLIC ACID INJ 1 MG, THIAMINE INJ 100 MG in IV NORMAL... IV SCH ×4 (11:53)
[2019-03-06] MEDS: HYDROcodone/APAP 5/325MG 1 TAB TABLET PO PRN (15:22)
[2019-03-06] MEDS: chlordiazePOXIDE HCL 25 MG CAPSULE PO PRN (15:22)
--- NOTE | 2019-03-06 18:26 | NUR ---
PT did not want to get up until noon. Pt is easily aroused and ask appropriate questions most of the time. patient did think there was a women in the corner of his room and she would not respond to him. Explained that is his IV pump. He also thought someone needed him to give a statement about an issue with his friend. Reoriented patient that none of this is true. He has been in his room alone all day. Patient will be d/c tomorrrow. POC is to go to [place] to stay with his dad. Pt did ambulate today with assistance. Unsteady at times, and did shower and sit in chair. Amanda Elizabeth
[2019-03-06] MEDS: diphenhydrAMINE 50 MG/ML VIAL IVP PRN (18:32)
[2019-03-06] MEDS: GABAPENTIN 100 MG CAPSULE. PO SCH ×2 (19:09→19:59)
[2019-03-06] MEDS ORDERED: LIDOCAINE (700MG/PATCH) PATCH. TD SCH (19:15)
--- NOTE | 2019-03-06 20:00 | NUR ---
Non-administered medications Not giving scheduled 2100 Gabapentin or removing Lidoderm patch: PM BID Gabapentin dose given at approx 1900, and Lidoderm patch placed at same time, so patch does not need to be removed till AM or next dose of Gabapentin given till AM. Aaron Rai RN
[2019-03-06] MEDS ORDERED: BISACODYL TAB 5 MG TABLET.DR. PO SCH (21:00)
[2019-03-06] MEDS ORDERED: PATCH REMOVAL. MC SCH (21:00)
--- NOTE | 2019-03-07 00:30 | NUR ---
Pt fell out of bed At approximately 2356 on [id number], this RN and TANK Espinosa, heard noise in pt's room and saw call light on. This RN was assisting another pt and Jesús went to see if pt needed anything, as pt's call light had previously fallen from table and made a similar noise. When this RN exited the other pt's room, Jesús stated that pt had fallen out of bed and that he had found pt sitting on his bedside. Jesús assisted pt return to bed. This RN immediately went to pt's room and asked pt if he was all right or if he had been hurt. Pt stated he had not been hurt. When asked where he had landed, pt stated on his left side. Pt asked if he needed anything, and pt stated no. Incident VERGEd, reported to Shandra, nursing marking room supervisor. Pt's bed alarm was on when pt fell and went off. Both upper side rails were raised. Lower side rails were not raised. Pt asked if he wanted both lower side rails raised after fall, and pt stated he did, so at this time all four side rails are raised. Curtain to pt's room was pulled approx [address]; at this time, curtain is now completely open. Shaji will be notified of incident in the morning; Shandra aware that he will be notified at that time. WCTM. Aaron Rai RN
[2019-03-07 05:10] VITALS: BP 99/55
--- NOTE | 2019-03-07 06:15 | NUR ---
Shift review Pt was more alert, speech clearer, this shift than previous night. Pt also less restless and fidgety, more steady on his feet, although pt remains unsteady. Pt generally cooperative with cares and interested in conversing with nurse and CNAs, although pt was less willing to cooperate with cares when roused from sleep, especially toward the end of the shift. Pt ate two boxed lunches and a bowl of tomato soup during the shift and drank multiple Gatorades, no reports of nausea. Pt reported pain to L lateral chest/abdomen at the beginning of the shift, received Gabapentin 200mg and a Lidocaine patch, and did not c/o pain again. Pt is currently sleeping. Aaron Rai RN
[2019-03-07 06:36] LABS: BASO % 1 % (0-3); EOS # 0.1 x10^3/uL (0.0-0.7); EOS % 2 % (0-3); HEMATOCRIT 38.3 % (39.0-53.0); LYMPH # 1.3 x10^3/uL (1.0-4.8); LYMPH % 25 % (24-48); MEAN CORPUSCULAR HEMOGLOBIN 29 pg (25-35); MEAN CORPUSCULAR HGB CONC 34 g/dL (31-37); MEAN CORPUSCULAR VOLUME 85 fL (79-100); MONO # 0.4 x10^3/uL (0.0-1.1); MONO % 7 % (0-9); NEUT # 3.3 x10^3uL (1.8-7.7); NEUT % 64 % (31-73); PLATELET COUNT 167 x10^3/uL (140-400); RED BLOOD COUNT 4.49 x10^6/uL (4.30-5.70); RED CELL DISTRIBUTION WIDTH 13.9 % (11.5-14.5); WHITE BLOOD COUNT 5.1 x10^3/uL (4.0-11.0)
[2019-03-07 06:37] LABS: CALCIUM 8.3 mg/dL (8.5-10.1); CREATININE 0.9 mg/dL (0.7-1.3); GFR 96.6; MAGNESIUM 1.7 mg/dL (1.8-2.4); POTASSIUM 3.8 mmol/L (3.5-5.1)
[2019-03-07] MEDS: PANTOPRAZOLE 40 MG TABLET. PO SCH (08:07)
[2019-03-07] MEDS ORDERED: MAGNESIUM OXIDE 400 MG TABLET PO SCH (09:00)
--- NOTE | 2019-03-07 09:25 | NUR ---
pt pacing up and down in room on the phone, this nurse went to assist pt due to unsteadiness. pt stated, "i'm leaving." this nurse attempted to ask the reason for leaving and assist in the transportation of the pt's leaving, pt would not acknowledge this nurse. the pt got off the phone and stated, "you guys have been great but i'm leaving, my kid has a ear ache and my is bringing them to [facility] down the hill." this nurse notified supervisor refining and security of this. pt's iv d/c'd and belongings given back to the pt. pt off the unit ambulatory but unsteady with security assisting.
--- NOTE | 2019-03-07 09:43 | PN ---
DATE: 03/06/2019 SUBJECTIVE: The patient is resting, slightly propped up in bed, in no apparent respiratory distress. He is definitely more awake, alert, although according to the nursing staff, he continued to be extremely unsteady. OBJECTIVE: GENERAL: When I examined him, he looked well and was clearly in no apparent respiratory distress. No pallor, jaundice, cyanosis, or thyromegaly. No jugular venous distention. No lower limb edema. VITAL SIGNS: His heart rate was 71, blood pressure 114/61, temperature was 98.6, respiratory rate was 24 and oxygen saturation was 98% on 2 liters of oxygen. HEAD, EYES, EARS, NOSE AND THROAT: Showed normocephalic, atraumatic. NECK: Supple. HEART: Showed normal first and second heart sounds with no gallop, rub or murmur. CHEST: Clear to auscultation. No crepitation or rhonchi. ABDOMEN: Distended, soft, nontender. No guarding or rigidity. No organomegaly. All hernial orifice intact. Bowel sounds normal. NEUROLOGIC: He is awake, alert, responding appropriately. All cranial nerves are intact. He continued to be fairly unsteady. LABORATORY DATA: His lab work however showed his white cell count is down to 4400, hemoglobin 12.8, hematocrit 37.9, MCV 86 and platelet count of 147,000. Serum sodium was 143, potassium 4, chloride 107, bicarbonate 28, anion gap of 8, BUN 14, creatinine 1.1. Estimated GFR was 76 mL per minute, his glucose was 85, calcium was 8.6, magnesium was 2.1. Total bilirubin and alkaline phosphatase are normal. AST and ALT is slightly elevated. ASSESSMENT AND PLAN: 1. Alcohol withdrawal. 2. Acute kidney injury, resolved. His creatinine came down from 2.5 to 1.1. 3. Hypokalemia, resolved. The patient unfortunately continued to be extremely unsteady in his gait. We will work with physical and occupational therapy and hopefully discharge him home tomorrow. CHAUNCEY SORIA MD DR: HUMPHREY/marc JOB#: [id number] / [id number]
== END 2019-03-07 09:32 | disposition left against medical advice (07) | DRG 683 ==
LOC: ER 08:01 → 1 SOUTH 09:07 → ER 09:50 → ICU 10:40
PROVIDERS: ADMIT Internal Medicine; ATTEND Internal Medicine
DX: N17.9 Acute kidney failure, unspecified (principal); F10.239 Alcohol dependence with withdrawal, unspecified; D72.829 Elevated white blood cell count, unspecified; D75.1 Secondary polycythemia; E86.0 Dehydration; J45.909 Unspecified asthma, uncomplicated; Z53.21 Procedure and treatment not carried out due to patient leaving prior to being seen by health care provider; E87.6 Hypokalemia; F12.90 Cannabis use, unspecified, uncomplicated; F19.10 Other psychoactive substance abuse, uncomplicated; Z87.891 Personal history of nicotine dependence; Z79.899 Other long term (current) drug therapy
CPT/HCPCS: 36415; 71045; 80048; 80053; 80076; 80307; 80329; 81001; 83735; 84484; 85025; 85027; 85610; 87641; 93005; 96365; 96368; 96375; G0480; J1200; J1630; J2060; J2405; J3480; Q0163; 82003; 99285-25; J7030